=== PATIENT | female | born 1960 | race Caucasian/White ===

== ENCOUNTER 2023-10-23 13:59 | Outpatient (AMB) | payer OTHER, SELFPAY ==
[2023-10-23 14:06] VITALS: BP 126/74; PULSE 111; O2SAT 98; BMI 20.7
--- NOTE | 2023-10-23 14:06 | HO.NEPHOV ---
Vital Signs 10/23/23 14:06 Height 5 ft 6 in Weight 128 lb BMI 20.7 BP 126/74 Blood Pressure Location Lt brachial Position Sitting Pulse 111 H Pulse Source Pulse Oximeter Pulse Oximetry (%) 98 Oxygen Delivery Method Room Air Intake Visit Reasons: Continue care/ Conf Vice President Mission Integration Required: No Accompanied by: Self / Same As Patient Allergies ciprofloxacin Allergy (Unknown, Verified 10/23/23 14:08) Nausea and Vomiting doxycycline Allergy (Unknown, Verified 10/23/23 14:08) Nausea and Vomiting levofloxacin [From Levaquin] Allergy (Unknown, Verified 10/23/23 14:08) Unknown Penicillins Allergy (Unknown, Verified 10/23/23 14:08) Unknown prednisolone acetate, micronized Allergy (Unknown, Verified 10/23/23 14:08) Unknown floxin otic Allergy (Unknown, Uncoded 10/09/23 10:17) Unknown sulfa antibiotics Allergy (Unknown, Uncoded 10/09/23 09:32) Anaphylaxis Medication List - Last Reconciled 10/23/23 by Darwin Daniels MD ascorbic acid (vitamin C) 1 g PO BID calcium citrate-vitamin D3 200 mg-6.25 mcg (250 unit) 1 tab PO DAILY cholecalciferol (vitamin D3) 50 mcg PO DAILY coenzyme Q10 (Co Q-10) 600 mg PO DAILY colchicine mg PO BID cyproheptadine 4 mg PO DAILY dextroamphetamine sulfate 10 mg PO DAILY lamotrigine 200 mg PO BID minoxidil 2.5 mg PO DAILY quetiapine (Seroquel) 150 mg PO DAILY vitamin E (dl, acetate) 180 mg PO DAILY HPI Comments Details: Pastora is a pleasant 63-year-old woman with a history of myasthenia gravis. She was initially seen in 1999 for hypertension. This was due to the use of cyclosporine. After discontinue cyclosporine blood pressure improved. Overall she is done well. Previously she was on Norvasc 5 mg. However she wanted to take minoxidil for hair loss therefore Norvasc was discontinued on minoxidil 2.5 mg was started in 2022. She is tolerating this very well blood pressure well controlled no new issues. She also has history of Tyrone-Danlos syndrome. 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 [facility] Family History Father Hypertension Heart disease Cancer Mother Cancer Autoimmune disease Maternal Grandmother Autoimmune disease Cancer Paternal Aunt Autoimmune disease Physical Exam Vital Signs: Last Vital Signs Pulse 111 H 10/23/23 14:06 BP 126/74 10/23/23 14:06 Pulse Ox 98 10/23/23 14:06 Oxygen Delivery Method Room Air 10/23/23 14:06 BMI result Body Mass Index 20.7 Const General: comfortable Neck Neck: Yes supple Chest Chest palpation & inspection: normal inspection of the chest Resp Auscultation: clear to auscultation bilaterally Cardio Jugular venous distension: no JVD Palpation: no palpable S3 Rate: bradycardic Heart sounds: S1 normal heart sound present and S2 normal heart sound present GI Palpation (GI): Soft to palpation Auscultation: normal bowel sounds Skin General skin exam: no rashes or lesions noted Neuro Motor exam (neuro): no asterixis Results Reviewed Results Reviewed: Recent BUN of 12 creatinine 1.12. Serum lytes normal Nephrology Results: No Data to Display Assessment & Plan Assessment & Plan (1) CKD (chronic kidney disease) stage 2, GFR 60-89 ml/min: Code(s): N18.2 - Chronic kidney disease, stage 2 (mild) Category: Medical (2) Myasthenia: Code(s): G70.00 - Myasthenia gravis without (acute) exacerbation Category: Medical (3) Tyrone-Danlos syndrome: Code(s): Q79.60 - Tyrone-Danlos syndrome, unspecified Category: Medical (4) HTN (hypertension): Code(s): I10 - Essential (primary) hypertension Category: Medical Plan 63-year-old man with a history of hypertension. Blood pressure well controlled. She has mild CKD in a setting of longstanding hypertension. Renal function stable with a creatinine 1.12. At this point the goal is to slow the portion of renal disease Maintain blood pressure less than 130/80 Avoid nephrotoxic agents including NSAIDs. Encouraged to stay on low-sodium diet increase p.o. fluid intake. No changes were made today. Orders: Orders Basic Metabolic Panel 11 Months I10 - Essential (primary) hypertension Medications: Changed From quetiapine (Seroquel) 100 mg PO DAILY 1 tab 0RF To quetiapine (Seroquel) 150 mg PO DAILY Coding Level of Care Code Est Pt Level 3 (93520) Diagnoses CKD (chronic kidney disease) stage 2, GFR 60-89 ml/min N18.2 Myasthenia G70.00 Tyrone-Danlos syndrome Q79.60 HTN (hypertension) I10
== END 2023-10-23 14:27 | disposition home or self-care (01) ==
PROVIDERS: PCP Internal Medicine; Visit Provider Internal Medicine Hypertension Specialist
DX: I12.9 Hypertensive chronic kidney disease with stage 1 through stage 4 chronic kidney disease, or unspecified chronic kidney disease (principal); N18.2 Chronic kidney disease, stage 2 (mild); G70.00 Myasthenia gravis without (acute) exacerbation; Q79.60 Ehlers-Danlos syndrome, unspecified
CPT/HCPCS: 99213

== ENCOUNTER → 2023-10-23 13:59 | Outpatient (BNVA) | payer OTHER, SELFPAY | PROVIDERS: PCP Internal Medicine; Visit Provider Internal Medicine Hypertension Specialist ==

== ENCOUNTER 2024-10-19 12:11 | Outpatient (REF) | payer OTHER, SELFPAY ==
--- OUTSIDE RECORDS SUMMARY | 2024-10-19 13:34 | XMS_ITS | Clinical Summary ---
Author Organization [facility] Address [address] [place] [address] Care Team Providers Care Decorator Lighting Fixtures Name Role Phone Unavailable Primary Care Provider Unavailabl e Medications Medication Sig Dispensed Refills Start Date End Date Status lamoTRIgine (LAMICTAL) 200 MG tablet 0 Active lamoTRIgine (LaMICtal) 200 MG tablet Take 200 mg by mouth 2 (two) times a day. 3 08/05/2018 Active lamoTRIgine (LaMICtal) 200 MG tablet Take 200 mg by mouth. 0 Active fluconazole (DIFLUCAN) 150 MG tablet Take 1 tablet by mouth. 0 11/09/2015 Active losartan (COZAAR) tablet 50 mg Take 1 tablet by mouth. 0 Active QUEtiapine (SEROquel) 200 MG tablet Take 200 mg by mouth. 0 Active QUEtiapine (SEROquel) 200 MG tablet Take 200 mg by mouth every night at bedtime. 3 09/19/2018 Active QUEtiapine (SEROQUEL) 200 MG tablet Take by mouth. 0 Active amLODIPine (NORVASC) tablet 2.5 mg Take 2.5 mg by mouth. 0 Active amLODIPine (NORVASC) tablet 2.5 mg Take 2.5 mg by mouth daily. 5 08/04/2018 Active amLODIPine (NORVASC) tablet 2.5 mg Take by mouth. 0 Active Oahgkir-Spvngwmnj-Ewxr min D ER (CITRACAL SLOW RELEASE) 600-40-500 MG-MG-UNIT TB24 Orally 0 Active Calcium Citrate-Vitamin D (CVS CALCIUM CITRATE +D3 MINI) 200-250 MG-UNIT TABS Take 1 tablet by mouth. 0 Active olopatadine (PATANOL) 0.1 % ophthalmic solution 0 Active Lifitegrast (XIIDRA) 5 % SOLN 0 Active methocarbamol (ROBAXIN) 750 MG tablet Take 750 mg by mouth. 0 02/10/2017 Active amphetamine-dextroamph etamine (ADDERALL XR, 15MG,) 15 MG 24 hr capsule Take by mouth. 0 Active ADDERALL XR, 15MG, 15 MG 24 hr capsule TAKE ONE CAPSULE BY MOUTH EVERY MORNING 0 10/14/2018 Active amphetamine-dextroamph etamine (ADDERALL) 15 MG tablet Take 15 mg by mouth. 0 Active Ascorbic Acid (VITAMIN C) 1000 MG tablet Take 1,000 mg by mouth. 0 Active Ascorbic Acid (VITAMIN C) 1000 MG tablet Take by mouth. 0 09/22/2014 Act lisa Social History Tobacco Use Types Packs/Day Years Used Date Smoking Tobacco: Never Assessed Sex and Gender Information Value Date Recorded Sex Assigned at Female 07/31/2018 9:54 AM EDT Gender Identity Not on file Sexual Orientation Not on file Last Filed Vital Signs Vital Sign Reading Time Taken Comments Blood Pressure 140/90 10/20/2018 2:23 PM EDT Pulse - - Temperature - - Respiratory Rate - - Oxygen Saturation - - Inhaled Oxygen Concentration - - Weight 65.8 kg (145 lb) 10/20/2018 2:23 PM EDT Height - - Body Mass Index - - Plan of Treatment Health Maintenance Due Date Last Done Comments Hepatitis C Screening 1960 COVID-19 Vaccine (#1) 1960 Depression Screening 1972 Preventative Health Evaluation 1978 DTap / Tdap / Td (1 - Tdap) 06/15/1979 Cervical Cancer Screening (Pap Smear) 1981 Colon Cancer Screening (Colonoscopy) 2005 Breast Cancer Screening (Mammogram) 2010 Shingrix-Zoster Vaccine (1 of 2) 2010 Influenza Vaccine (#1) 2024 8, 01/17/2016, 12/15/2014, Additional history exists Pneumococcal Vaccine (1 of 1 - PCV) 2025 RSV Adult > 60+ Yrs or (1 - 1-dose 75+ series) 06/15/2035 Hepatitis B Vaccines Aged Out No long er eligible based on patient's age to complete this topic Pneumococcal Vaccine Aged Out No long er eligible based on patient's age to complete this topic RSV Ped < 20 months Aged Out No longe r eligible based on patient's age to complete this topic
--- OUTSIDE RECORDS SUMMARY | 2024-10-19 13:34 | XMS_ITS | Clinical Summary ---
Author Organization [facility] Address [address] [place], [place] [address] [address] Phone Care Team Providers Care Chief Of Production Name Role Phone Jadiel Henning MD Primary Care Provider [phone] Allergies Active Allergy Reactions Criticality Noted Date Comments Ciprofloxacin Other (see comments) 07/26/2020 Doxycycline Nausea And Vomiting, Other (see comments) 01/21/2017 Ofloxacin Other (see comments) 07/26/2020 Levofloxacin Other (see comments) 07/26/2020 Penicillins Other (see comments) 04/30/2019 Prednisolone Other (see comments) 07/26/2020 Sulfa Antibiotics Anaphylaxis,Other (see comments) High 01/21/2017 Medications ascorbic acid (VITAMIN C) 1000 MG tablet Take 1 tablet by mouth 2 (two) times a day Active Calcium Citrate-Vitamin D 200-250 MG-UNIT tablet Take 1 tablet by mouth Active lamoTRIgine (LaMICtal) 200 MG tablet Take 1 tablet by mouth 2 (two) times a day Active dextroamphetami ne (DEXTROSTAT) 10 MG tablet Take 10 mg by mouth 1 (one) time each day in the morning 10/09/2022 Active QUEtiapine (SEROquel) 100 MG tablet Take 100 mg by mouth 1 (one) time each day in the evening 07/27/2022 Active Coenzyme Q10 60 MG capsule Take 30 mg by mouth 1 (one) time each day Active VITAMIN E BLEND PO Take by mouth Active KETOTIFEN FUMARATE OP 1 drop in the morning and 1 drop in the evening. Active minoxidil (LONITEN) 2.5 MG tablet TAKE 1 TABLET BY MOUTH 1 TIME EACH DAY. 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 10/23/2022 Hyperlipidemia 10/23/2022 10/23/2022 Hysterectomy 10/23/2022 10/23/2022 Overweight 10/23/2022 10/23/2022 Recurrent major depression in partial remission 10/23/2022 10/23/2022 Renal failure syndrome 10/23/2022 Sleep apnea 10/23/2022 10/23/2022 History of chronic renal impairment 07/26/2020 Tyrone-Danlos syndrome 07/26/2020 Myasthenia gravis 07/26/2020 Chronic rout-AAHIG-43 syndrome 05/13/2019 0 10/23/2022 Hypertensive disorder 01/21/2017 Immunizations Immunization Administration Dates Next Due Influenza Whole 04/30/2007 Influenza, Unspecified 12/08/2007,12/19/2005, SARS-CoV-2, Unspecified 03/16/2007 Td, Unspecified 04/30/2007 Family History Medical History Relation Comments Cancer Father Heart disease Father Hypertension Father Autoimmune disease Maternal Grandmother Cancer Maternal Grandmother Autoimmune disease Mother Cancer Mother Autoimmune disease Mother's Sister Relation Status Comments Father Maternal Grandmother Mother Alive Mother's Sister Social History Tobacco Use Types Packs/Day Years Used Date Smoking Tobacco: Never Smokeless Tobacco: Never Tobacco Cessation:Counseling Given: No Alcohol Use Standard Drinks/Week Comments No 0 (1 standard drink = 0.6 oz pur e alcohol) Comments Unknown Sex and Gender Information Value Date Recorded Sex Assigned at Not on file Legal Sex Female 5:03 PM EST Gender Identity Not on file Sexual Orientation Not on file Last Filed Vital Signs Vital Sign Reading Time Taken Comments Blood Pressure 110/70 10/23/2022 3:00 PM EDT Pulse 91 10/23/2022 3:00 PM EDT Temperature - - Respiratory Rate - - Oxygen Saturation 98% 10/23/2022 3:00 PM EDT Inhaled Oxygen Concentration - - Weight 62.1 kg (137 lb) 10/23/2022 3:00 PM EDT Height 167.6 cm (5' 6 ) 11/04/2018 12:00 PM EDT Body Mass Index 22.11 11/04/2018 12:00 PM EDT Plan of Treatment Health Maintenance Due Date Last Done Comments Breast Cancer Screening 1960 Pneumococcal Vaccine: 50+ Years (1 of 2 - PCV) 06/15/1979 Colorectal Cancer Screening: Annual FOBT 2009 Colorectal Cancer Screening: Colonoscopy 2009 Colorectal Cancer Screening: Sigmoidoscopy 2009 Influenza Vaccine (#1) 2024 8, 04/30/2007, 12/19/2005, Additional history exists Hepatitis B Vaccine Aged Out No longe r eligible based on patient's age to complete this topic Insurance [facility] [place] [address] [employer] [facility] [place] [address] [employer] Care Teams Chief Of Production Relationship Specialty Start Date End Date Jadiel Henning MD PCP - General 03/13/20
--- OUTSIDE RECORDS SUMMARY | 2024-10-19 13:34 | XMS_ITS | Clinical Summary ---
Author Organization [facility] Address [address] [place] [id number] Phone Care Team Providers Care Monogram Operator Name Role Phone Jadiel Henning MD Primary Care Provid er Allergies Active Allergy Reactions Criticality Noted Date Comments Alpha 1 José- Quinazolines 04/07/2023 Ciprofloxacin Other (See Comments) 07/26/2020 Doxycycline Calcium Headaches,Nausea and/or Vomiting 01/21/2017 Levofloxacin Other (See Comments) 07/26/2020 Ofloxacin Other (See Comments) 07/26/2020 Penicillins 04/30/2019 Prednisone 01/21/2017 Severe depression Sulfa (Sulfonamide Antibiotics) Anaphylaxis High 01/21/2017 Medications lamoTRIgine (LAMICTAL) 200 MG tablet Take 200 mg by mouth 2 (two) times a day. Active ascorbic acid, vitamin C, (VITAMIN C) 1000 MG tablet Take 1,000 mg by mouth 2 (two) times a day. Active calcium carb and citrate-vitD3 (CITRACAL + D SLOW RELEASE) 600 mg calcium- 500 unit TbER Orally Active QUEtiapine (SEROQUEL) 100 MG tablet take 1 tablet by mouth everyday at bedtime Active coenzyme Q10 (CO Q-10) 10 mg capsule Take 600 mg by mouth. 08/14/2022 Active minoxidiL (LONITEN) 2.5 MG tablet Take 2.5 mg by mouth daily. Active dextroamphetami ne sulfate 10 MG tablet Take 10 mg by mouth every morning. Active ketotifen fumarate, bulk, 100 % Powd 1 mg by mouth twice daily 08/01/2022 Active cyproheptadine (PERIACTIN) 4 mg tablet 02/19/2023 Active vitamin E 45 mg (100 unit) Cap capsule Take 100 Units by mouth daily. Active Active Problems Problem Noted Date Diagnosed Date S/P hysterectomy 10/23/2022 Hyperlipidemia 10/23/2022 Overweight 10/23/2022 Recurrent major depression in partial remission 10/23/2022 Sleep apnea 10/23/2022 Myasthenia gravis 07/26/2020 Personal history of other diseases of urinary sy stem 07/26/2020 Chronic qatp-CAYEB-17 syndrome 05/13/2019 Hypertension 01/21/2017 Family History Medical History Relation Comments No Known Problems Brother 1 Depression Brother 2 Tyrone-Danlos syndrome Brother 2 hypermobi lity type Hernia Brother 2 3-4 hernias Joint hypermobility Brother 2 Other Brother 2 cardiac wall th ickening Coronary artery disease Father Heart attack Father Skin cancer Father Autoimmune disease Maternal Aunt Lung disease Maternal Uncle due to chemical exposure Padmini's thyroiditis Mother Rheumatoid arthritis Mother Scoliosis Mother Heart disease Paternal Aunt Heart attack Paternal Uncle 1 Heart attack Paternal Uncle 2 Other Son 1 recurrent ankle sprains, wrist problems No Known Problems Son 2 Relation Status Comments Brother 1 Brother 2 Father Maternal Aunt Maternal Uncle Mother Alive Paternal Aunt Alive Paternal Uncle 1 Paternal Uncle 2 Son 1 Son 2 Social History Tobacco Use Types Packs/Day Years Used Date Smoking Tobacco: Never Smokeless Tobacco: Never Alcohol Use Standard Drinks/Week Comments Not Currently 0 (1 standard drink = 0.6 oz pur e alcohol) Education Answer Date Recorded Are you interested in more education? Not on edilberto e 06/27/2022 Are you concerned about learning? Not on file 06/27/2022 No 06/27/2022 No 06/27/2022 Digital Access Answer Date Recorded No 07/29/2022 No 07/29/2022 Reliable internet access at home? Not on file 07/29/2022 Device with a working camera? Not on file Comments Unknown Sex and Gender Information Value Date Recorded Sex Assigned at Not on file Legal Sex Female 8:05 PM EST Gender Identity Not on file Sexual Orientation Not on file Last Filed Vital Signs Vital Sign Reading Time Taken Comments Blood Pressure 128/76 04/07/2023 2:16 PM EST Pulse 91 04/07/2023 2:16 PM EST Temperature 37.1 C (98.7 F) 04/07/2023 2:16 PM EST Respiratory Rate 18 04/30/2019 12:31 PM EST Oxygen Saturation 99% 04/07/2023 2:16 PM EST Inhaled Oxygen Concentration - - Weight 62.6 kg (138 lb) 04/30/2019 11:13 AM EST Height 167.6 cm (5' 6 ) 04/30/2019 11:13 AM EST Body Mass Index 22.27 04/30/2019 11:13 AM EST Plan of Treatment Health Maintenance Due Date Last Done Comments Adult Td,Tdap Booster 1960 LIPID PANEL 1960 DEPRESSION SCREENING 1972 HEPATITIS C SCREENING 1978 HIV ONE-TIME SCREENING (18-6 5 YEARS) 1978 MAMMOGRAM 2000 COLOGUARD 2005 COLONOSCOPY 2005 COLORECTAL CANCER SCREENING 2005 FIT TEST 2005 FOBT 2005 SIGMOIDOSCOPY 2005 VIRTUAL COLONOSCOPY 2005 PNEUMOCOCCAL VACCINES (50+ years) (1 of 1 - PCV) 2010 ZOSTER VACCINES (1 of 2) 2010 BLOOD PRESSURE 10/06/2023 04/07/2023 COVID-19 VACCINE (3 - 2023-2 5 season) 2023 07/09/2020, 06/11/2020 RSV VACCINE (1 - 1-dose 75+ series) 06/15/2035 SMOKING STATUS SCREENING (On ce After 26 Yrs) Completed 04/07/2023 HEPATITIS A VACCINES Aged Out No long er eligible based on patient's age to complete this topic HIB VACCINES Aged Out No longer eligi ble based on patient's age to complete this topic MENINGOCOCCAL VACCINES (ACWY) Aged Out No longer eligible based on patient's age to complete this topic MENINGOCOCCAL VACCINES (B) Aged Out N o longer eligible based on patient's age to complete this topic Medical Devices Implanted Type Area Solar Resource Assessor Device Identifier Shelf Expiration Date Model / Serial / Lot Plate N/A: Spine Cervical Insurance [employer] TOTAL CHOICE INDEMNITY [employer] TOTAL CHOICE INDEMNITY [employer] TOTAL CHOICE INDEMNITY [facility] TOTAL CHOICE INDEMNITY [facility] TOTAL CHOICE INDEMNITY [employer] TOTAL CHOICE INDEMNITY [employer] TOTAL CHOICE INDEMNITY [employer] TOTAL CHOICE INDEMNITY [employer] TOTAL CHOICE INDEMNITY Care Teams Monogram Operator Relationship Specialty Start Date End Date Jadiel Henning MD [address] [facility] [address] [place] [address] PCP - General Internal Medicine 04/07/23 Additional Source Comments The information contained in this document represents components of the legal health record. It is not the complete legal health record.[facility]
--- OUTSIDE RECORDS SUMMARY | 2024-10-19 13:34 | XMS_ITS | Clinical Summary ---
Author Organization [facility] Address [address] [place] [address] Care Team Providers Care Food Technician Name Role Phone Unavailable Primary Care Provider Unavailabl e Surgical History Surgery Date Site/Laterality Comments HIP SURGERY PROCEDURE:HIP SURGERY HYSTERECTOMY PROCEDURE:HYSTERECTOMY Social History Tobacco Use Types Packs/Day Years Used Date Smoking Tobacco: Never Assessed Comments Unknown Sex and Gender Information Value Date Recorded Sex Assigned at Not on file Legal Sex Female 11:11 AM EST Gender Identity Not on file Sexual Orientation Not on file Obstetrics History Plan of Treatment Health Maintenance Due Date Last Done Comments Breast Cancer Screening 1960 DTaP,Tdap,and Td Vaccines (1 - Tdap) 06/15/1979 Cervical Cancer Screening: P ap Smear 1981 Pneumococcal Vaccine: 50+ Ye ars (1 of 1 - PCV) 2010 Zoster Vaccines (1 of 2) 2010 COVID-19 Vaccine ( - 2023-2 5 season) 2023 Depression Screening 03/03/2024 Influenza Vaccine (#1) 2024 RSV Immunization Adult Patie nts (1 - 1-dose 75+ series) 06/15/2035 HIB Vaccines Aged Out No longer eligi ble based on patient's age to complete this topic HPV Vaccines Aged Out No longer eligi ble based on patient's age to complete this topic Hepatitis A Vaccines Aged Out No long er eligible based on patient's age to complete this topic Hepatitis B Vaccines Aged Out No long er eligible based on patient's age to complete this topic IPV Vaccines Aged Out No longer eligi ble based on patient's age to complete this topic MMR Vaccines Aged Out No longer eligi ble based on patient's age to complete this topic Meningococcal ACWY Vaccine Aged Out N o longer eligible based on patient's age to complete this topic Meningococcal B Vaccine Aged Out No l onger eligible based on patient's age to complete this topic RSV Immunization Patients Un latia 20 months Aged Out No longer eligible b ased on patient's age to complete this topic Varicella Vaccines Aged Out No longer eligible based on patient's age to complete this topic
--- OUTSIDE RECORDS SUMMARY | 2024-10-19 13:34 | XMS_ITS | Clinical Summary ---
Author Organization [facility] Address [address] [place] [address] Care Team Providers Care Review Specialist Name Role Phone Jadiel Henning Primary Care Provider [phone] Allergies Active Allergy Reactions Criticality Noted Date Comments Doxycycline Headache,Nausea/GI Upset 01/21/2017 Penicillins Other 04/30/2019 Prednisolone Other 07/26/2020 Prednisone Other 01/21/2017 Severe depression with all known steroids (systemic) (inhaler okay and eye drops are okay) Quinolones Other 04/06/2024 Sulfa Antibiotics Anaphylaxis High 01/21/2017 Medications Lamotrigine (LaMICtal) 200 MG tablet Take 200 mg by mouth 2 (two) times a day. Active Cyproheptadine HCl (PERIACTIN) 4 MG tablet Take 8 mg by mouth every night at bedtime. 12/31/2023 Active Minoxidil (LONITEN) 2.5 MG tablet Take 2.5 mg by mouth 1 (one) time each day. Active QUEtiapine Fumarate (SEROquel) 100 MG tablet Take 150 mg by mouth every night at bedtime. Active Colchicine 0.6 MG Cap Take 0.6 mg by mouth in the morning and at bedtime. 07/08/2023 Active Calcium Citrate-Vitamin D ([place] Calcium/Vitamin D) 200-6.25 MG-MCG Tab Take 1 tablet by mouth in the morning and at bedtime. Active Zenzedi 10 MG tablet Take 10 mg by mouth 1 (one) time each day. 08/05/2023 Active Ascorbic Acid (VITAMIN C) 1000 MG tablet Take 1,000 mg by mouth 2 (two) times a day. Active Vitamin E 45 MG (100 UNIT) Cap Take 100 Units by mouth 1 (one) time each day. Active Acetylcarnitine HCl (Hmowrl-F-Bicgk jenifer HCl) Powder 500 mg 1 (one) time each day. Active Coenzyme Q10 (CoQ10) 100 MG capsule Take 600 mg by mouth 1 (one) time each day. Active Ketotifen Fumarate Powder 1 mg in the morning and at bedtime COMPOUNDED MEDICATION . Active Social History Tobacco Use Types Packs/Day Years Used Date Smoking Tobacco: Never Smokeless Tobacco: Never Tobacco Cessation:Counseling Given: Not Answered Comments Unknown Sex and Gender Information Value Date Recorded Sex Assigned at Female 01/15/2024 3:32 PM EST Legal Sex Female 3:24 PM EST Gender Identity Female 01/15/2024 3:32 PM EST Sexual Orientation Not on file Last Filed Vital Signs Vital Sign Reading Time Taken Comments Blood Pressure 138/80 04/06/2024 2:07 PM EST Pulse 128 04/06/2024 2:07 PM EST Temperature - - Respiratory Rate - - Oxygen Saturation - - Inhaled Oxygen Concentration - - Weight 58.5 kg (129 lb) 04/06/2024 2:07 PM EST Height - - Body Mass Index - - Plan of Treatment Health Maintenance Due Date Last Done Comments Hepatitis C Screening 1960 Pap Smear 1976 DTaP/Tdap/Td (1 - Tdap) 1978 Mammogram/Breast Imaging 2000 Colon Cancer Screening 2005 Pneumococcal 50+ years (1 of 1 - PCV) 2010 Zoster (Shingrix) (1 of 2) 2010 COVID-19 Vaccine ( - season) 2023 Influenza (#1) 2024 12/08/2007, 04/04, 12/19/2005, Additional history exists RSV (1 - 1-dose 75+ series) 06/15/2035 HPV Vaccine (No Doses Required) Completed Hep A Aged Out No longer eligi ble based on patient's age to complete this topic Hep B Aged Out No longer eligi ble based on patient's age to complete this topic Hib Aged Out No longer eligi ble based on patient's age to complete this topic Meningococcal ACWY Aged Out No longer eligible based on patient's age to complete this topic Zoster (Zostavax) Discontinued Insurance [employer] Care Teams Review Specialist Relationship Specialty Start Date End Date Jadiel Henning [facility] [place] [place] [facility] [address] [facility] [id number] [place] [id number] PCP - General Internal Medicine 04/06/24
[2024-10-19 18:49] LABS: Anion Gap 13 (12-20); Blood Urea Nitrogen 24 mg/dL (9-16); Calcium 10.2 mg/dL (8.4-10.2); Carbon Dioxide 30 mmol/L (22-29); Chloride 104 mmol/L (96-108); Estimated Glomerular Filt Rate 55; Potassium 4.8 mmol/L (3.3-5.1); Sodium 142 mmol/L (135-145)
== END 2024-10-19 12:12 | disposition home or self-care (01) ==
LOC: HO.HKASLDS 12:11
PROVIDERS: Visit Provider Internal Medicine Hypertension Specialist
DX: I10 Essential (primary) hypertension (principal)
CPT/HCPCS: 36415; 80048

== ENCOUNTER 2024-10-21 13:16 | Outpatient (AMB) | payer OTHER, SELFPAY ==
[2024-10-21 13:19] VITALS: BP 112/68; PULSE 95; O2SAT 98; BMI 20.2
--- NOTE | 2024-10-21 13:19 | HO.NEPHOV ---
Vital Signs 10/21/24 13:19 Height 5 ft 6 in Weight 125 lb BMI 20.2 BP 112/68 Blood Pressure Location Lt brachial Position Sitting Pulse 95 Pulse Source Pulse Oximeter Pulse Oximetry (%) 98 Oxygen Delivery Method Room Air Intake Visit Reasons: 1 yr follow up/ Conf Bobbin Collector Required: No Accompanied by: Self / Same As Patient Allergies ciprofloxacin Allergy (Unknown, Verified 10/21/24 13:21) Nausea and Vomiting doxycycline Allergy (Unknown, Verified 10/21/24 13:21) Nausea and Vomiting levofloxacin (From Levaquin) Allergy (Unknown, Verified 10/21/24 13:21) Unknown Penicillins Allergy (Unknown, Verified 10/21/24 13:21) Unknown prednisolone acetate, micronized Allergy (Unknown, Verified 10/21/24 13:21) Unknown floxin otic Allergy (Unknown, Uncoded 10/09/23 10:17) Unknown sulfa antibiotics Allergy (Unknown, Uncoded 10/09/23 09:32) Anaphylaxis Medication List - Last Reconciled 10/21/24 by Darwin Daniels MD ascorbic acid (vitamin C) 1 g PO BID calcium citrate-vitamin D3 200 mg-6.25 mcg (250 unit) 1 tab PO DAILY cholecalciferol (vitamin D3) 50 mcg PO DAILY coenzyme Q10 (Co Q-10) 600 mg PO DAILY cyproheptadine 4 mg PO DAILY dextroamphetamine sulfate 10 mg PO DAILY lamotrigine 200 mg PO BID levocarnitine (L-Carnitine) 500 mg PO BID minoxidil 2.5 mg PO DAILY naltrexone 4.5 mg PO DAILY quetiapine (Seroquel) 150 mg PO DAILY vitamin E (dl, acetate) 180 mg PO DAILY HPI Comments Details: Pastora is a pleasant 63-year-old woman with a history of myasthenia gravis. She was initially seen in 1999 for hypertension. This was due to the use of cyclosporine. After discontinue cyclosporine blood pressure improved. Overall she is done well. Previously she was on Norvasc 5 mg. However she wanted to take minoxidil for hair loss therefore Norvasc was discontinued on minoxidil 2.5 mg was started in 2022. She is tolerating this very well blood pressure well controlled no new issues. She also has history of Tyrone-Danlos syndrome. 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 10/21/24 The patient is a 64-year-old female presenting with long COVID symptoms and hypertension. Long COVID symptoms include loss of skin sensation since 2019, with improvement noted after starting low-dose naltrexone. Blood pressure fluctuates significantly, managed with minoxidil 2.5 mg. Reports appetite loss and weight loss, with recent slight weight gain. MEDICATIONS: - Low-dose naltrexone 4.5 mg for long COVID symptoms - Minoxidil 2.5 mg for hypertension DIAGNOSTIC RESULTS: - Creatinine level: 1.05 mg/dL [facility] Family History Father Hypertension Heart disease Cancer Mother Cancer Autoimmune disease Maternal Grandmother Autoimmune disease Cancer Paternal Aunt Autoimmune disease Physical Exam Vital Signs: Last Vital Signs Pulse 95 10/21/24 13:19 BP 112/68 10/21/24 13:19 Pulse Ox 98 10/21/24 13:19 Oxygen Delivery Method Room Air 10/21/24 13:19 BMI result Body Mass Index 20.2 Comfortable Neck supple no JVD. Lungs entry equal no rales. Heart S1-S2 heard no gallop or rub. Abdomen soft nontender. Neuro alert awake oriented. No asterixis. Extremities no edema. Results Reviewed Nephrology Results: Sodium, (135-145) 142 mmol/L 10/19/24 Potassium, (3.3-5.1) 4.8 mmol/L 10/19/24 Chloride, (96-108) 104 mmol/L 10/19/24 Carbon Dioxide, (22-29) 30 mmol/L H 10/19/24 BUN, (9-16) 24 mg/dL H 10/19/24 Creatinine, (0.5-1.4) 1.02 mg/dL 10/19/24 Calcium, (8.4-10.2) 10.2 mg/dL 10/19/24 Assessment & Plan Assessment & Plan (1) CKD (chronic kidney disease) stage 2, GFR 60-89 ml/min: Code(s): N18.2 - Chronic kidney disease, stage 2 (mild) Category: Medical (2) Myasthenia: Code(s): G70.00 - Myasthenia gravis without (acute) exacerbation Category: Medical (3) Tyrone-Danlos syndrome: Code(s): Q79.60 - Tyrone-Danlos syndrome, unspecified Category: Medical (4) HTN (hypertension): Code(s): I10 - Essential (primary) hypertension Category: Medical Plan 64-year-old woman with a history of hypertension. Blood pressure is acceptable. She has mild CKD in a setting of longstanding hypertension. Renal function stable with a creatinine 1.02. At this point the goal is to slow the portion of renal disease Maintain blood pressure less than 130/80 Avoid nephrotoxic agents including NSAIDs. Encouraged to stay on low-sodium diet increase p.o. fluid intake. No changes were made today. Coding Level of Care Code Est Pt Level 4 (87152) Diagnoses CKD (chronic kidney disease) stage 2, GFR 60-89 ml/min N18.2 Myasthenia G70.00 Tyrone-Danlos syndrome Q79.60 HTN (hypertension) I10
--- OUTSIDE RECORDS SUMMARY | 2024-10-21 13:26 | XMS_ITS | Clinical Summary ---
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 TOTAL CHOICE INDEMNITY [employer] [facility] TOTAL CHOICE INDEMNITY [employer] TOTAL CHOICE INDEMNITY [employer] TOTAL CHO[employer] INDEMNITY [employer] INDEMNITY [employer] INDEMNITY Care Teams Logging Tractor Operator Swamp Relationship Specialty Start Date End Date Jadiel Henning MD [address] [facility] [address] [place] [address] PCP - General Internal Medicine 04/07/23 Additional Source Comments The information contained in this document represents components of the legal health record. It is not the complete legal health record.[facility]
--- OUTSIDE RECORDS SUMMARY | 2024-10-21 13:26 | XMS_ITS | Clinical Summary ---
Author Organization [facility] Address [address] [place], [place] [address] [address] Phone Care Team Providers Care Internal Audit Manager Name Role Phone Jadiel Henning MD Primary Care Provider [phone] Allergies Active Allergy Reactions Criticality Noted Date [...] Tyrone-Danlos syndrome 07/26/2020 Myasthenia gravis 07/26/2020 Chronic vsxq-[id number]-05 syndrome 05/13/2019 0 10/23/2022 Hypertensive disorder 01/21/2017 [...] patient's age to complete this topic Insurance [facility] [place] [id number] [employer] [facility] [place] [id number] [employer] Care Teams Internal Audit Manager Relationship Specialty Start Date End Date Jadiel Henning MD PCP - General 03/13/20
--- OUTSIDE RECORDS SUMMARY | 2024-10-21 13:26 | XMS_ITS | Clinical Summary ---
Author Organization [facility] Address [address] [place] [address] Care Team Providers Care Pawn Broker Name Role Phone Unavailable Primary Care Provider [...]
--- OUTSIDE RECORDS SUMMARY | 2024-10-21 13:26 | XMS_ITS | Clinical Summary ---
Author Organization [facility] Address [address] [place] [address] Care Team Providers Care Vortex Operator Name Role Phone Unavailable Primary Care Provider [...] 2.5 mg Take by mouth. 0 Active Uvizblz-Jgmzjmtjf-Davg min D ER (CITRACAL SLOW RELEASE) [id number] [...]
--- OUTSIDE RECORDS SUMMARY | 2024-10-21 13:26 | XMS_ITS | Clinical Summary ---
Author Organization [facility] Address [address] [place] [address] Care Team Providers Care Motorcycle Subassembler Name Role Phone Jadiel Henning Primary Care Provider [phone] Allergies Active Allergy Reactions Criticality Noted Date [...] at bedtime. 07/08/2023 Active Calcium Citrate-Vitamin D ([place] Calcium/Vitamin D) 200-6.25 MG-MCG Tab Take 1 [...] (one) time each day. Active Acetylcarnitine HCl (Daymdi-Z-Srzac jenifer HCl) Powder 500 mg 1 (one) [...] Zoster (Zostavax) Discontinued Insurance [employer] Care Teams Motorcycle Subassembler Relationship Specialty Start Date End Date Jadiel Henning [facility] [employer] [employer] [address] [facility] [id number] [place] [id number] PCP - General Internal Medicine 04/06/24
== END 2024-10-21 13:34 | disposition home or self-care (01) ==
LOC: HO.HKA 13:16
PROVIDERS: PCP Internal Medicine; Visit Provider Internal Medicine Hypertension Specialist
DX: I12.9 Hypertensive chronic kidney disease with stage 1 through stage 4 chronic kidney disease, or unspecified chronic kidney disease (principal); N18.2 Chronic kidney disease, stage 2 (mild); G70.00 Myasthenia gravis without (acute) exacerbation; Q79.60 Ehlers-Danlos syndrome, unspecified
CPT/HCPCS: 99214